=== PATIENT | female | born 1945 | race Caucasian/White ===

== ENCOUNTER 2017-02-09 01:06 | Emergency (ER) | payer OTHER, MEDICAID ==
[~2017-02-09] VITALS: Ht 139.7 cm; Wt 47.7 kg
[2017-02-09] MEDS ORDERED: [UNRECOGNIZED DRUG - REMARK] PO (01:17)
[2017-02-09 01:26] LABS: GLUCOSE,POINT OF CARE 229 MG/DL (70-110)
[2017-02-09] MEDS ORDERED: ACETAMINOPHEN 500 MG TABLET PO ONE (02:15)
[2017-02-09] MEDS ORDERED: ONDANSETRON HCL 4 MG/2 ML VIAL IVP ONE (02:15)
[2017-02-09] MEDS ORDERED: ACETAMINOPHEN 325 MG TABLET PO ONE (02:15)
[2017-02-09] MEDS ORDERED: SODIUM CHLORIDE 0.9% 1,000 ML IV ONE (02:15)
[2017-02-09 02:30] LABS: BASOPHILS % (AUTO) 0.1 % (0.0-2.0); EOSINOPHILS % (AUTO) 0 % (1.0-6.0); HEMATOCRIT 31.6 % (36-46); HEMOGLOBIN 10.7 g/dL (12.0-16.0); LYMPHOCYTES % (AUTO) 15.3 % (22.0-44.0); MEAN CORPUSCULAR HEMOGLOBIN 29.3 pg (26.0-34.0); MEAN CORPUSCULAR HGB CONC 33.7 G/dL (31.0-37.0); MEAN CORPUSCULAR VOLUME 87 fL (80-100); MONOCYTES # (AUTO) 0.3 K/uL (0.1-1.0); NEUTROPHILS # (AUTO) 5.3 K/uL (1.8-7.7); NEUTROPHILS % (AUTO) 79.6 % (40.0-70.0); PLATELET COUNT (AUTO) 218 K/uL (150-450); RED BLOOD CELL COUNT(AUTO) 3.64 MIL/uL (4.00-5.20); WHITE BLOOD COUNT (AUTO) 6.6 K/uL (4.5-11.0)
[2017-02-09 02:48] LABS: CALCIUM, TOTAL 8.6 mg/dL (8.8-10.5); CREATININE 0.95 mg/dL (0.60-1.30); POTASSIUM 4.2 mmol/L (3.5-5.1)
[2017-02-09 02:54] LABS: ALBUMIN 3.4 g/dL (3.4-5.0); BILIRUBIN,TOTAL 0.3 mg/dL (0.1-1.0); TOTAL PROTEIN, SERUM 7.3 g/dL (6.4-8.2)
[2017-02-09 03:54] VITALS: BP 112/78
== END 2017-02-09 04:10 | disposition home or self-care (01) ==
LOC: EMS 01:09
DX: K52.9 Noninfective gastroenteritis and colitis, unspecified (principal); E11.65 Type 2 diabetes mellitus with hyperglycemia; E78.00 Pure hypercholesterolemia, unspecified
CPT/HCPCS: 36415; 80053; 82962; 83605; 83690; 84484; 85025; 87040; 93005; 96361; 96374; 99285; J2405; J7030; 96365; 96366; 96375

== ENCOUNTER 2022-10-21 13:51 | Inpatient (IN) | payer OTHER ==
[~2022-10-21] VITALS: Ht 134.6 cm; Wt 45.6 kg
[~2022-10-21 13:51] MED LIST: [UNRECOGNIZED DRUG - REMARK] PO
[2022-10-21] MEDS ORDERED: ATOR40TA71 PO (14:18)
[2022-10-21] MEDS ORDERED: LOSA-381 PO (14:18)
[2022-10-21] MEDS ORDERED: GABA-1181 PO (14:18)
[2022-10-21] MEDS ORDERED: METF-446 PO (14:18)
[2022-10-21] MEDS ORDERED: VALS160T31 PO (14:18)
[2022-10-21] MEDS ORDERED: EMPA10TA3 PO (14:18)
[2022-10-21] MEDS ORDERED: FURO20TA4 PO (14:18)
[2022-10-21 15:45] LABS: BASOPHILS % (AUTO) 0.6 % (0.0-2.0); EOSINOPHILS % (AUTO) 1.7 % (1.0-6.0); HEMATOCRIT 29.4 % (36-46); HEMOGLOBIN 9.7 g/dL (12.0-16.0); LYMPHOCYTES # (AUTO) 2.1 K/uL (1.0-4.8); LYMPHOCYTES % (AUTO) 24.5 % (22.0-44.0); MEAN CORPUSCULAR HEMOGLOBIN 30.1 pg (26.0-34.0); MEAN CORPUSCULAR HGB CONC 33.1 G/dL (31.0-37.0); MEAN CORPUSCULAR VOLUME 91 fL (80-100); MONOCYTES # (AUTO) 0.5 K/uL (0.1-1.0); MONOCYTES % (AUTO) 6.3 % (2.0-9.0); NEUTROPHILS # (AUTO) 5.6 K/uL (1.8-7.7); NEUTROPHILS % (AUTO) 66.9 % (40.0-70.0); PLATELET COUNT (AUTO) 275 K/uL (150-450); RED BLOOD CELL COUNT(AUTO) 3.23 MIL/uL (4.00-5.20); RED CELL DISTRIBUTION WIDTH 13.8 % (11.5-14.5)
[2022-10-21 15:58] LABS: ANION GAP 7 mmol/L (8-16); CALCIUM, TOTAL 8.6 mg/dL (8.8-10.5); CARBON DIOXIDE 27 mmol/L (22-29); CHLORIDE 100 mmol/L (98-107); GLOMERULAR FILTR. RATE CALC > 60 mL/min (>60); GLUCOSE,RANDOM 210 mg/dL (70-110); POTASSIUM 3.5 mmol/L (3.5-5.1); SODIUM SERUM 134 mmol/L (136-145); UREA NITROGEN, BLOOD 20 mg/dL (7-18)
[2022-10-21 16:14] LABS: ALANINE AMINOTRANSFERASE 553 U/L (12-78); ALBUMIN 3.1 g/dL (3.4-5.0); ALKALINE PHOSPHATASE 98 U/L (46-116); ASPARTATE AMINOTRANSFERASE 443 U/L (15-37); BILIRUBIN,TOTAL 0.2 mg/dL (0.1-1.0)
[2022-10-21 16:38] LABS: APPEARANCE,URINE HAZY (CLEAR); BILIRUBIN,URINE NEGATIVE (NEGATIVE); GLUCOSE, URINE (UA) NEGATIVE (NEGATIVE); KETONES,URINE NEGATIVE (NEGATIVE); LEUKOCYTE ESTERASE ,URINE NEGATIVE (NEGATIVE); NITRATE,URINE NEGATIVE (NEGATIVE); OCCULT BLOOD,URINE MODERATE (NEGATIVE); PROTEIN,URINE TRACE mg/dL (NEGATIVE); SPECIFIC GRAVITIY, URINE 1.007 (1.003-1.030); UROBILINOGEN,URINE <=1.0 mg/dL (<=1.0)
[2022-10-21 16:48] LABS: CREATINE KINASE, TOTAL ONLY 17696 U/L (26-192)
[2022-10-21 16:48] LABS: COVID AG,FIA SOURCE NASOPHARYNGEAL
[2022-10-21] MEDS ORDERED: DOCU100C33 PO (16:58)
[2022-10-21] MEDS ORDERED: OLME40TA18 PO (16:58)
[2022-10-21] MEDS ORDERED: INSU100I21 SQ (16:58)
[2022-10-21] MEDS ORDERED: DULA1.5P SQ (16:58)
[2022-10-21] MEDS ORDERED: DICL100G31 TP (16:58)
[2022-10-21 17:00] LABS: BACTERIA,URINE Moderate /HPF (None Seen); SQUAMOUS EPITHELIAL CELL,UR Few /LPF (None Seen)
[2022-10-21] MEDS ORDERED: SODIUM CHLORIDE 0.9% 1,000 ML IV ONE ×2 (17:00→20:30)
[2022-10-21] MEDS ORDERED: ONDANSETRON HCL 4 MG/2 ML VIAL IVP PRN ×2 (20:30→20:45)
[2022-10-21] MEDS ORDERED: ACETAMINOPHEN 325 MG TABLET PO PRN ×2 (20:30→20:45)
[2022-10-21] MEDS ORDERED: INSULIN LISPRO 100 UNITS/ML SQ PRN (20:45)
[2022-10-21] MEDS ORDERED: DEXTROSE 50%-WATER 25 GM/50 ML SYRINGE IVP PRN (20:45)
[2022-10-21 20:46] LABS: RETICULOCYTE % (AUTO) 1.2 % (0.5-2.3)
[2022-10-21 20:56] LABS: % IRON SATURATION 15.4 % (22-44); IRON, SERUM 39 mcg/dL (50-175); TOTAL IRON BINDING CAPACITY 253 mcg/dL (250-450)
[2022-10-21 21:01] LABS: B-TYPE NATRIURETIC PEPTIDE 37 pg/mL (0-100)
[2022-10-21] MEDS: GABAPENTIN 100 MG CAPSULE PO SCH (22:45)
[2022-10-21] MEDS: SODIUM CHLORIDE 0.9% 1,000 ML IV SCH ×2 (22:45→22:51)
[2022-10-21] MEDS: INSULIN GLARGINE,HUM.REC.ANLOG 100 UNITS/ML SQ SCH (23:10)
[2022-10-22] VITALS (7 sets, daily range): BP systolic 118–151; BP diastolic 52–79
[2022-10-22] MEDS: CefTRIAXone 1 GM/DEXTROSE 50 ML IV SCH ×2 (00:11→23:16)
[2022-10-22] MEDS: HEPARIN SODIUM,PORCINE 5,000 UNITS/ML VIAL SQ SCH ×4 (00:12→23:16)
[2022-10-22 05:12] LABS: GLUCOMETER DEV NAME(LOC) 5S.2B; GLUCOSE,POINT OF CARE 126 MG/DL (70-110)
[2022-10-22] MEDS: SODIUM CHLORIDE 0.9% 1,000 ML IV SCH ×2 (06:13→23:16)
[2022-10-22] MEDS: LOSARTAN POTASSIUM 25 MG TABLET PO SCH (09:08)
[2022-10-22] MEDS: GABAPENTIN 100 MG CAPSULE PO SCH ×3 (09:08→20:11)
[2022-10-22 11:56] LABS: GLUCOMETER DEV NAME(LOC) 5S.1B; GLUCOSE,POINT OF CARE 93 MG/DL (70-110)
[2022-10-22] MEDS: ASPIRIN 81 MG DR TABLET PO SCH (16:21)
[2022-10-22 17:46] LABS: GLUCOMETER DEV NAME(LOC) 5S.2B; GLUCOSE,POINT OF CARE 110 MG/DL (70-110)
[2022-10-22] MEDS: INSULIN GLARGINE,HUM.REC.ANLOG 100 UNITS/ML SQ SCH (20:11)
[2022-10-22 22:55] LABS: GLUCOMETER DEV NAME(LOC) 5N.1C; GLUCOSE,POINT OF CARE 212 MG/DL (70-110)
[2022-10-22 22:55] LABS: GLUCOMETER DEV NAME(LOC) 5S.1B; GLUCOSE,POINT OF CARE 104 MG/DL (70-110)
[2022-10-23 04:00] VITALS: BP 144/68
[2022-10-23] MEDS: SODIUM CHLORIDE 0.9% 1,000 ML IV SCH ×4 (05:30→20:41)
[2022-10-23 05:49] LABS: BASOPHILS % (AUTO) 1.2 % (0.0-2.0); EOSINOPHILS % (AUTO) 2.3 % (1.0-6.0); HEMATOCRIT 31.8 % (36-46); HEMOGLOBIN 10.8 g/dL (12.0-16.0); LYMPHOCYTES # (AUTO) 3.3 K/uL (1.0-4.8); LYMPHOCYTES % (AUTO) 35.7 % (22.0-44.0); MEAN CORPUSCULAR HEMOGLOBIN 30.9 pg (26.0-34.0); MEAN CORPUSCULAR HGB CONC 34.1 G/dL (31.0-37.0); MEAN CORPUSCULAR VOLUME 91 fL (80-100); MONOCYTES # (AUTO) 0.6 K/uL (0.1-1.0); MONOCYTES % (AUTO) 6.5 % (2.0-9.0); NEUTROPHILS # (AUTO) 5.1 K/uL (1.8-7.7); NEUTROPHILS % (AUTO) 54.3 % (40.0-70.0); PLATELET COUNT (AUTO) 239 K/uL (150-450); RED BLOOD CELL COUNT(AUTO) 3.51 MIL/uL (4.00-5.20)
[2022-10-23 06:21] LABS: ALANINE AMINOTRANSFERASE 462 U/L (12-78); ALBUMIN 2.9 g/dL (3.4-5.0); ALKALINE PHOSPHATASE 80 U/L (46-116); ANION GAP 6 mmol/L (8-16); ASPARTATE AMINOTRANSFERASE 315 U/L (15-37); BILIRUBIN,TOTAL 0.1 mg/dL (0.1-1.0); CALCIUM, TOTAL 8.6 mg/dL (8.8-10.5); CARBON DIOXIDE 26 mmol/L (22-29); CHLORIDE 107 mmol/L (98-107); CHOL/HDL RATIO 2.8 (3.9-5.7); CHOLESTEROL 122 mg/dL (131-200); CREATININE 0.58 mg/dL (0.60-1.30); GLUCOSE,RANDOM 78 mg/dL (70-110); HDL CHOLESTEROL 44 mg/dL (40-60); LDL CHOL (CALC.) 55 mg/dL (0-130); POTASSIUM 3.8 mmol/L (3.5-5.1); SODIUM SERUM 139 mmol/L (136-145); TOTAL PROTEIN, SERUM 6.8 g/dL (6.4-8.2); TRIGLYCERIDES 117 mg/dL (15-150); UREA NITROGEN, BLOOD 11 mg/dL (7-18)
[2022-10-23 06:43] LABS: GLOMERULAR FILTR. RATE CALC > 60 mL/min (>60)
[2022-10-23 07:16] LABS: CREATINE KINASE, TOTAL ONLY 12965 U/L (26-192)
[2022-10-23 07:35] VITALS: BP 146/59
[2022-10-23] MEDS: LOSARTAN POTASSIUM 25 MG TABLET PO SCH (08:58)
[2022-10-23] MEDS: ASPIRIN 81 MG DR TABLET PO SCH (08:58)
[2022-10-23] MEDS: HEPARIN SODIUM,PORCINE 5,000 UNITS/ML VIAL SQ SCH ×3 (08:59→23:36)
[2022-10-23] MEDS: GABAPENTIN 100 MG CAPSULE PO SCH ×3 (08:59→20:42)
[2022-10-23 12:40] VITALS: BP 132/60
[2022-10-23 13:16] LABS: GLUCOMETER DEV NAME(LOC) 5S.1B; GLUCOSE,POINT OF CARE 78 MG/DL (70-110)
[2022-10-23 16:35] VITALS: BP 147/65
[2022-10-23 20:06] VITALS: BP 155/65
[2022-10-23] MEDS: INSULIN GLARGINE,HUM.REC.ANLOG 100 UNITS/ML SQ SCH (20:43)
[2022-10-23] MEDS: CefTRIAXone 1 GM/DEXTROSE 50 ML IV SCH (23:36)
[2022-10-24 00:23] VITALS: BP 130/61
[2022-10-24 00:36] LABS: GLUCOMETER DEV NAME(LOC) 5N.1C; GLUCOSE,POINT OF CARE 115 MG/DL (70-110)
[2022-10-24 00:36] LABS: GLUCOMETER DEV NAME(LOC) 5N.1C; GLUCOSE,POINT OF CARE 95 MG/DL (70-110)
[2022-10-24 04:37] VITALS: BP 126/64
[2022-10-24] MEDS: SODIUM CHLORIDE 0.9% 1,000 ML IV SCH ×2 (05:28→12:51)
[2022-10-24 07:18] VITALS: BP 152/67
[2022-10-24] MEDS: HEPARIN SODIUM,PORCINE 5,000 UNITS/ML VIAL SQ SCH ×2 (08:50→15:49)
[2022-10-24] MEDS: GABAPENTIN 100 MG CAPSULE PO SCH ×2 (08:50→15:49)
[2022-10-24] MEDS: LOSARTAN POTASSIUM 25 MG TABLET PO SCH (08:50)
[2022-10-24] MEDS: ASPIRIN 81 MG DR TABLET PO SCH (08:50)
[2022-10-24 11:10] VITALS: BP 126/53
[2022-10-24] MEDS ORDERED: ASPI-1444 PO (13:43)
[2022-10-24 15:51] VITALS: BP 143/69
[2022-10-24 20:07] LABS: GLUCOMETER DEV NAME(LOC) 5S.1B; GLUCOSE,POINT OF CARE 82 MG/DL (70-110)
[2022-10-24 20:07] LABS: GLUCOMETER DEV NAME(LOC) 5S.1B; GLUCOSE,POINT OF CARE 106 MG/DL (70-110)
[2022-10-25 12:17] LABS: GLUCOMETER DEV NAME(LOC) 5S.2B; GLUCOSE,POINT OF CARE 71 MG/DL (70-110)
== END 2022-10-24 17:00 | disposition home or self-care (01) | DRG 558 ==
LOC: EMS 14:04 → 5S 21:20
PROVIDERS: ADMIT Internal Medicine; ATTEND Internal Medicine
DX: M62.82 Rhabdomyolysis (principal); E11.65 Type 2 diabetes mellitus with hyperglycemia; R74.01 Elevation of levels of liver transaminase levels; I10 Essential (primary) hypertension; D64.9 Anemia, unspecified; E78.00 Pure hypercholesterolemia, unspecified; G62.9 Polyneuropathy, unspecified; E11.42 Type 2 diabetes mellitus with diabetic polyneuropathy; Z79.84 Long term (current) use of oral hypoglycemic drugs; R31.29 Other microscopic hematuria; M19.90 Unspecified osteoarthritis, unspecified site; Z20.822 Contact with and (suspected) exposure to COVID-19
CPT/HCPCS: 51701; 70450; 71045; 80053; 80061; 81001; 82271; 82550; 82962; 83540; 83550; 83880; 84484; 85025; 85045; 87086; 87186; 93005; 93306; 97116; 97162; 97530; 99285; J0696; J1644; J1815; J7030; 36415-L1; 36415-TC

== ENCOUNTER 2022-12-13 15:25 | Emergency (ER) | payer OTHER ==
[~2022-12-13] VITALS: Ht 144.8 cm; Wt 56.8 kg
[~2022-12-13 15:25] MED LIST changes: +ASPI-1444 PO; +DICL100G31 TP; +DOCU100C33 PO; +DULA1.5P SQ; +EMPA10TA3 PO; +FURO20TA4 PO; +GABA-1181 PO; +INSU100I21 SQ; +LOSA-381 PO; +METF-446 PO; -[UNRECOGNIZED DRUG - REMARK] PO
[2022-12-13 15:36] VITALS: BP 159/76
== END 2022-12-13 17:49 | disposition home or self-care (01) ==
LOC: EMS 15:59
DX: T83.098D Other mechanical complication of other urinary catheter, subsequent encounter (principal); E11.9 Type 2 diabetes mellitus without complications; E78.00 Pure hypercholesterolemia, unspecified; Z46.6 Encounter for fitting and adjustment of urinary device; Y92.89 Other specified places as the place of occurrence of the external cause
CPT/HCPCS: 82962; 99282

== ENCOUNTER 2022-12-27 15:20 | Emergency (ER) | payer OTHER ==
[~2022-12-27] VITALS: Ht 149.9 cm; Wt 43.9 kg
[~2022-12-27 15:20] MED LIST changes: -ASPI-1444 PO; -DICL100G31 TP; -DOCU100C33 PO; -DULA1.5P SQ; -EMPA10TA3 PO; -FURO20TA4 PO; -GABA-1181 PO; -LOSA-381 PO
[2022-12-27] MEDS ORDERED: ACETAMINOPHEN 325 MG TABLET PO ONE (16:30)
[2022-12-27] MEDS ORDERED: SODIUM CHLORIDE 0.9% 1,000 ML IV ONE ×2 (16:30→18:00)
[2022-12-27 16:47] LABS: COVID AG,FIA SOURCE NASOPHARYNGEAL
[2022-12-27 16:48] LABS: BASOPHILS % (AUTO) 0.5 % (0.0-2.0); EOSINOPHILS % (AUTO) 0.1 % (1.0-6.0); HEMATOCRIT 32.2 % (36-46); HEMOGLOBIN 10.5 g/dL (12.0-16.0); LYMPHOCYTES # (AUTO) 1.3 K/uL (1.0-4.8); LYMPHOCYTES % (AUTO) 11.7 % (22.0-44.0); MEAN CORPUSCULAR HEMOGLOBIN 29.9 pg (26.0-34.0); MEAN CORPUSCULAR HGB CONC 32.7 G/dL (31.0-37.0); MEAN CORPUSCULAR VOLUME 91 fL (80-100); MONOCYTES # (AUTO) 0.7 K/uL (0.1-1.0); MONOCYTES % (AUTO) 6.4 % (2.0-9.0); NEUTROPHILS % (AUTO) 81.3 % (40.0-70.0); PLATELET COUNT (AUTO) 309 K/uL (150-450); RED BLOOD CELL COUNT(AUTO) 3.53 MIL/uL (4.00-5.20)
[2022-12-27 16:58] LABS: ANION GAP 7 mmol/L (8-16); CALCIUM, TOTAL 8.2 mg/dL (8.8-10.5); CARBON DIOXIDE 28 mmol/L (22-29); CHLORIDE 99 mmol/L (98-107); CREATININE 0.64 mg/dL (0.60-1.30); GLOMERULAR FILTR. RATE CALC > 60 mL/min (>60); GLUCOSE,RANDOM 108 mg/dL (70-110); POTASSIUM 3.6 mmol/L (3.5-5.1); SODIUM SERUM 134 mmol/L (136-145); UREA NITROGEN, BLOOD 13 mg/dL (7-18)
[2022-12-27 17:13] LABS: ALANINE AMINOTRANSFERASE 632 U/L (12-78); ALBUMIN 2.9 g/dL (3.4-5.0); ALKALINE PHOSPHATASE 74 U/L (46-116); ASPARTATE AMINOTRANSFERASE 433 U/L (15-37); BILIRUBIN,TOTAL 0.3 mg/dL (0.1-1.0); TOTAL PROTEIN, SERUM 6.7 g/dL (6.4-8.2)
[2022-12-27 17:18] LABS: LACTIC ACID 0.8 mmol/L (0.4-2.0)
[2022-12-27 17:31] LABS: CREATINE KINASE, TOTAL ONLY 13431 U/L (26-192)
[2022-12-27 17:33] LABS: INFLUENZA TYPE A NEGATIVE FOR TYPE A (NEGATIVE); INFLUENZA TYPE B NEGATIVE FOR TYPE B (NEGATIVE)
[2022-12-27 17:42] LABS: RAPID GROUP A STREP NEGATIVE (NEGATIVE)
[2022-12-27 18:46] LABS: APPEARANCE,URINE HAZY (CLEAR); BILIRUBIN,URINE NEGATIVE (NEGATIVE); GLUCOSE, URINE (UA) NEGATIVE (NEGATIVE); KETONES,URINE NEGATIVE (NEGATIVE); LEUKOCYTE ESTERASE ,URINE NEGATIVE (NEGATIVE); NITRATE,URINE NEGATIVE (NEGATIVE); OCCULT BLOOD,URINE LARGE (NEGATIVE); PROTEIN,URINE 100-200,SEE CONFIRM mg/dL (NEGATIVE); SPECIFIC GRAVITIY, URINE 1.013 (1.003-1.030); UROBILINOGEN,URINE <=1.0 mg/dL (<=1.0)
[2022-12-27 18:58] LABS: BACTERIA,URINE None Seen /HPF (None Seen); SQUAMOUS EPITHELIAL CELL,UR Moderate /LPF (None Seen); SULFOSALICYLIC ACID,URINE 3+ (Negative); WBC,URINE 0-2 /HPF (0-5)
[2022-12-27 22:45] VITALS: BP 128/49
== END 2022-12-27 23:37 | disposition short-term general hospital (02) ==
LOC: EMS 15:24
DX: M62.82 Rhabdomyolysis (principal); R53.1 Weakness; R50.9 Fever, unspecified; E11.9 Type 2 diabetes mellitus without complications; E78.00 Pure hypercholesterolemia, unspecified; I10 Essential (primary) hypertension; Z20.822 Contact with and (suspected) exposure to COVID-19
CPT/HCPCS: 99285; 96360; 71045; 96361; 87426; 80053; 81001; 82550; 83605; 84484; 85025; 87040; 87430; 87804; 36415; 51701; 81002; 93005; J7030